=== PATIENT | female | born 1935 | race Two or more races ===

== ENCOUNTER 2019-08-12 13:33 | Emergency (ER) | payer OTHER ==
[~2019-08-12] VITALS: Ht 157.5 cm; Wt 81.6 kg
[~2019-08-12 13:33] MED LIST: ANTIVERT12.5 MG; BONIVA150 MG; COUMADIN3 MG; COZAAR25 MG; ISOSORBIDE MONO30 MG; LANTUS SOLOSTAR3 ML; LEVOTHROID50 MCG; LOPRESSOR25 MG; LYRICA100 MG; OMEPRAZOLE20 MG; SERTRALINE HCL50 MG; SIMVASTATIN20 MG; SIMVASTATIN40 MG; VITAMIN D50000 UNIT
== END 2019-08-12 17:31 | disposition home or self-care (01) ==
LOC: ER 13:33
DX: S70.01XA Contusion of right hip, initial encounter (principal); S80.01XA Contusion of right knee, initial encounter; S93.491A Sprain of other ligament of right ankle, initial encounter; R07.89 Other chest pain; W10.8XXA Fall (on) (from) other stairs and steps, initial encounter; Y93.89 Activity, other specified; Y92.098 Other place in other non-institutional residence as the place of occurrence of the external cause; Y99.8 Other external cause status

== ENCOUNTER 2023-04-19 14:11 | Emergency (ER) | payer OTHER ==
[~2023-04-19] VITALS: Ht 147.3 cm; Wt 68.0 kg
[2023-04-19 16:53] LABS: HEMOGLOBIN 13.7 g/dL (12.0-15.00); MEAN CELL VOLUME 87.6 fL (80.00-100.00); MEAN CORPUSCULAR HEMOGLOBIN 29.3 pg (27.00-32.0); MEAN CORPUSCULAR HGB CONC 33.5 g/dl (32.0-36.0); PLATELET COUNT 195 K/uL (150-450); RED BLOOD COUNT 4.68 M/uL (4.00-6.00); RED CELL DISTRIBUTION WIDTH 13.9 % (11.5-14.5)
[2023-04-19 17:16] LABS: CALCIUM 9.5 mg/dL (8.5-10.1); CREATININE SERUM 1.11 mg/dL (0.55-1.02); GFR 46.72; POTASSIUM 4.21 mEq/L (3.5-5.1)
[2023-04-19 17:22] LABS: PH,URINE 6.5 (5.0-8.0); URINE APPEARANCE Clear; URINE BACTERIA 22.6 uL (0.0-1933); URINE BILIRRUBIN Negative (NEGATIVE); URINE BLOOD Negative; URINE COLOR Yellow; URINE EPITHELIAL CELLS 3.2 uL (0.0-38.8); URINE LEUKOCYTE Negative; URINE NITRATE Negative; URINE PROTEIN Negative (NEGATIVE); URINE RBC 2.4 uL (0.0-20.8); URINE UROBILINOGEN 0.2 E.U./dl; URINE WBC 14.4 uL (0.0-23.2)
[2023-04-19 17:27] LABS: URINE GLUCOSE >=1000 MG/DL (NEGATIVE)
== END 2023-04-19 19:43 ==
LOC: ER 14:13
PROVIDERS: Nurse Practitioner Family
DX: H93.12 Tinnitus, left ear (principal); R42 Dizziness and giddiness; I11.9 Hypertensive heart disease without heart failure; E11.9 Type 2 diabetes mellitus without complications; Z79.4 Long term (current) use of insulin; I10 Essential (primary) hypertension; F03.90 Unspecified dementia, unspecified severity, without behavioral disturbance, psychotic disturbance, mood disturbance, and anxiety; M19.90 Unspecified osteoarthritis, unspecified site; Z88.0 Allergy status to penicillin; Z88.8 Allergy status to other drugs, medicaments and biological substances; Z98.890 Other specified postprocedural states

== ENCOUNTER 2025-01-28 18:30 | Emergency (ER) | payer OTHER ==
[~2025-01-28] VITALS: Ht 165.1 cm; Wt 71.7 kg
[2025-01-28] MEDS ORDERED: MEMANTINE HCL10 MG PO (19:49)
[2025-01-28] MEDS ORDERED: COZAAR25 MG PO (19:51)
[2025-01-28] MEDS ORDERED: ISOSORBIDE DINI30 MG (19:51)
[2025-01-28] MEDS ORDERED: TOPROL XL25 M1 PO (19:51)
[2025-01-28] MEDS ORDERED: TRAZODONE HCL100 MG PO (19:52)
[2025-01-28] MEDS ORDERED: RIVASTIGMINE1 EAC2 (19:52)
[2025-01-28] MEDS ORDERED: SIMVASTATIN80 MG (19:52)
[2025-01-28] MEDS ORDERED: WARFARIN SODIUM3 MG (19:53)
[2025-01-28] MEDS ORDERED: DEXAMETHASONE SODIUM PHOSPHATE 4 MG/ML VIAL IM ONE (20:15)
[2025-01-28] MEDS ORDERED: ORPHENADRINE CITRATE 30 MG/ML AMPUL IM ONE (20:15)
[2025-01-28] MEDS ORDERED: ACETAMINOPHEN 500 MG GEL..CAP PO ONE ×2 (20:15→20:41)
[2025-01-28] MEDS ORDERED: ORPHENADRINE CITRATE 30 MG/ML AMPUL ONE (20:41)
[2025-01-28] MEDS ORDERED: DEXAMETHASONE SODIUM PHOSPHATE 4 MG/ML VIAL ONE (20:41)
[2025-01-28] MEDS ORDERED: TYLENOL ARTHRI650 MG PO (22:38)
== END 2025-01-28 22:53 | disposition home or self-care (01) ==
LOC: ER 18:31
DX: M25.511 Pain in right shoulder (principal); E11.9 Type 2 diabetes mellitus without complications; Z79.84 Long term (current) use of oral hypoglycemic drugs; Z88.8 Allergy status to other drugs, medicaments and biological substances
CPT/HCPCS: 73030; 96372; 99283; J1100; J2360